=== PATIENT | male | born 1995 | race American Indian/Alaskan Native ===

== ENCOUNTER 2020-06-05 11:41 | Emergency (ER) | payer MEDICAID ==
[~2020-06-05] VITALS: Ht 188 cm; Wt 78.0 kg
[2020-06-05 11:47] VITALS: BP 102/67
== END 2020-06-05 12:56 | disposition home or self-care (01) ==
LOC: ER 11:42
DX: S80.02XA Contusion of left knee, initial encounter (principal); M25.462 Effusion, left knee; R11.0 Nausea; W18.39XA Other fall on same level, initial encounter; Y93.89 Activity, other specified; Y92.89 Other specified places as the place of occurrence of the external cause; Y99.8 Other external cause status
CPT/HCPCS: 29505; 73564; 99284

== ENCOUNTER 2020-07-11 21:25 | Emergency (ER) | payer MEDICAID ==
[~2020-07-11] VITALS: Ht 188 cm; Wt 81.8 kg
[2020-07-11] MEDS ORDERED: glucagon, human recombinant 1mg kit IV ONE (22:50)
[2020-07-11] MEDS ORDERED: LORazepam 2 mg/ml vial IV ONE (22:50)
[2020-07-11] MEDS ORDERED: ondansetron/PF 4mg/2ml inj IV ONE (23:35)
[2020-07-12 00:09] VITALS: BP 133/74
--- NOTE | 2020-07-12 00:14 | NUR ---
Pt off to GI Lab
[2020-07-12] MEDS ORDERED: LIDOcaine Viscous 15ml cup ONE (00:19)
[2020-07-12] MEDS ORDERED: MIDAZolam 5mg/5ml vial ONE (00:19)
[2020-07-12] MEDS ORDERED: fentaNYL/PF 50MCG/1 ML 2ML syringe ONE (00:19)
[2020-07-12 00:49] VITALS: BP 116/66
[2020-07-12 00:53] VITALS: BP 120/76
[2020-07-12 01:03] VITALS: BP 108/59
--- NOTE | 2020-07-12 01:05 | NUR ---
pt returned from gi lab,
--- NOTE | 2020-07-12 01:12 | NUR ---
7mg versed and 150 of fentnal in gi lab, after an hr only clear liquid,
[2020-07-12 01:13] VITALS: BP 117/57
[2020-07-12 01:46] VITALS: BP 98/57
[2020-07-12] MEDS ORDERED: MIDAZolam 5mg/5ml vial IV ONE (02:00)
== END 2020-07-12 05:58 | disposition home or self-care (01) ==
LOC: ER 21:25
DX: T17.220A Food in pharynx causing asphyxiation, initial encounter (principal); Z88.5 Allergy status to narcotic agent; X58.XXXA Exposure to other specified factors, initial encounter; Y93.89 Activity, other specified; Y92.89 Other specified places as the place of occurrence of the external cause; Y99.8 Other external cause status
CPT/HCPCS: 43239; 43247; 96374; 96375; 99285; C1773; J1610; J2060; J2250; J3010; J7040; 99152; A4620